=== PATIENT | female | born 1980 | race American Indian/Alaskan Native ===

== ENCOUNTER 2017-06-07 13:45 | Outpatient (CLI) | payer MEDICAID ==
[2017-06-07 14:16] VITALS: BP 124/74
== END 2017-06-07 15:50 | disposition home or self-care (01) ==
LOC: TRG 13:45
PROVIDERS: ATTEND Obstetrics & Gynecology
DX: O09.523 Supervision of elderly multigravida, third trimester (principal); O48.0 Post-term pregnancy; Z3A.40 40 weeks gestation of pregnancy
CPT/HCPCS: 59025

== ENCOUNTER 2017-06-12 09:25 | Inpatient (IN) | payer MEDICAID ==
[2017-06-12 11:39] LABS: Hematocrit 33.1 % (30.3-42.9); Hemoglobin 11.3 gm/dl (10.1-14.3); Mean Corpuscular HGB Conc 34 % (30-34); Mean Corpuscular Hemoglobin 33 pg (28-32); Mean Corpuscular Volume 98 fl (79-97); Platelet Count 161 K/mm3 (140-440); Red Blood Count 3.38 M/mm3 (3.65-5.03); White Blood Count 11.3 K/mm3 (4.5-11.0)
[2017-06-12] MEDS ORDERED: SUBLIMAZE IV PRN (12:38)
[2017-06-12] MEDS ORDERED: STADOL IV PRN (12:39)
[2017-06-12] MEDS ORDERED: PITOCin/NS 20 UNIT/1000ML DRIP 20 UNITS/1,000 ML BAG IV SCH ×2 (13:00→20:00)
[2017-06-12] MEDS: PITOCin/NS 30 UNIT/500ML 30 UNITS/500 ML BAG IV SCH (13:01)
[2017-06-12] MEDS: LACTATED RINGERS 1,000 ML IV SCH (13:05)
[2017-06-12] MEDS ORDERED: ePHEDrine SULFATE IV PRN (19:01)
[2017-06-12] MEDS ORDERED: MINERAL OIL PO PRN (19:01)
[2017-06-12] MEDS ORDERED: XYLOCAINE 2% INFILTRATI ONE (19:01)
[2017-06-12] MEDS ORDERED: BRETHINE IVP PRN (19:01)
[2017-06-12] MEDS ORDERED: BRETHINE SUB-Q PRN (19:01)
--- NOTE | 2017-06-12 19:01 | History and Physical Report ---
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 Social history: single - Obstetrical History Expected Date of Delivery: 06/06/17 Actual Gestation: 41 Week(s) 0 Day(s) : 1 Number of Living Children: 0 Medications and Allergies Allergies Allergy/AdvReac Type Severity Reaction Status Date / Time No Known Allergies Allergy Unverified 04/15/15 16:04 Home Medications Medication Instructions Recorded Confirmed Last Taken Type Pnv with Ca,No.72/Iron/FA [Pnv 1 mg PO QDAY 06/12/17 06/12/17 06/11/17 History Plus Multivit Tab] Active Meds: Active Medications Butorphanol Tartrate (Stadol) 2 mg IV Q2H PRN PRN Reason: Labor Pain Fentanyl (Sublimaze) 100 mcg IV ONCE PRN PRN Reason: Pain , Severe (7-10) Lactated Ringer's (Lactated Ringers) 1,000 mls @ 125 mls/hr IV DIRECT MARY Last Admin: 06/12/17 13:05 Dose: 125 mls/hr Oxytocin/Sodium Chloride (Pitocin/Ns 20 Unit/1000ml Drip) 20 units in 1,000 mls @ 0 mls/hr IV DIRECT MARY PRN Reason: As Directed Oxytocin/Sodium Chloride (Pitocin/Ns 30 Unit/500ml) 30 units in 500 mls @ 2 mls /hr IV TITR MARY PRN Reason: Protocol Last Titration: 06/12/17 17:30 Dose: 0 ml/hr, 0 mls/hr Review of Systems Gastrointestinal: abdominal pain Genitourinary: contractions - Vital Signs Vital signs: Vital Signs Temp Pulse Resp BP Pulse Ox 97.9 F 71 14 119/72 97 06/12/17 10:05 06/12/17 10:05 06/12/17 10:05 06/12/17 10:05 06/12/17 10:05 Temp Pulse Resp BP Pulse Ox 98.0 F 64 16 119/74 100 06/12/17 17:09 06/12/17 17:09 06/12/17 17:09 06/12/17 17:09 06/12/17 13:05 - Physical Exam Breasts: Cardiovascular: Regular rate, Normal S1, Normal S2 Lungs: Positive: Clear to auscultation, Normal air movement Abdomen: Positive: normal appearance, soft, normal bowel sounds. Negative: distention, tenderness Genitourinary (Female): Positive: normal external genitalia, normal perenium Vulva: both: normal Vagina: Positive: normal moisture. Negative: discharge Cervix: Negative: lesion, discharge Uterus: Positive: normal size, normal contour Adnexa: both: normal Anus/Rectum: Positive: normal perianal skin, heme negative. Negative: rectal mass, hemorrhoids Extremities: Positive: normal Deep Tendon Reflex Grade: Normal +2 - Obstetrical Cervical Dilatation: 1.5 Cervical Effacement Percentage: 50 station: -3 Uterine Contraction Pattern: Irregular Uterine Contraction Intensity: Moderate Results Result Diagrams: 06/12/17 10:45 Abnormal lab results 06/12/17 Range/Units 10:45 WBC 11.3 H (4.5-11.0) K/mm3 RBC 3.38 L (3.65-5.03) M/mm3 MCV 98 H (79-97) fl MCH 33 H (28-32) pg All other labs normal. Assessment and Plan IUP at 40.4 weeks here for induction of labor for advanced maternal age. WIll admit and begin pitocin induction. GBS negative. Will arom when able. Anticipate .
[2017-06-12] MEDS ORDERED: AMBIEN PO PRN (19:04)
[2017-06-12] MEDS ORDERED: LACTATED RINGERS 1,000 ML IV SCH (20:00)
[2017-06-12] MEDS ORDERED: PITOCin/NS 30 UNIT/500ML 30 UNITS/500 ML BAG IV SCH (20:00)
[2017-06-13] MEDS: PITOCin/NS 30 UNIT/500ML 30 UNITS/500 ML BAG IV SCH ×3 (09:41→11:11)
[2017-06-13] MEDS ORDERED: ePHEDrine SULFATE IV PRN (12:35)
[2017-06-13] MEDS ORDERED: NARCAN 2 MG/2 ML IV PRN (12:35)
--- NOTE | 2017-06-13 12:35 | Anesthesia Consultation ---
Anesthesia Consult and Med Hx Date of service: 06/13/17 - Airway Anesthetic Teeth Evaluation: Good ROM Head & Neck: Adequate Mental/Hyoid Distance: Adequate Mallampati Class: Class II Intubation Access Assessment: Probably Good - Pulmonary Exam CTA: Yes - Cardiac Exam Cardiac Exam: RRR - Pre-Operative Health Status ASA Pre-Surgery Classification: ASA2 Proposed Anesthetic Plan: Epidural - Pulmonary Hx Asthma: No - Cardiovascular System Hx Hypertension: No - Central Nervous System Hx Seizures: No Hx Psychiatric Problems: No - Endocrine Hx Renal Disease: No Hx Hypothyroidism: No Hx Hyperthyroidism: No - Hematic Hx Anemia: No Hx Sickle Cell Disease: No - Other Systems Hx Alcohol Use: No
[2017-06-13] MEDS: LACTATED RINGERS 1,000 ML IV SCH (12:57)
[2017-06-13] MEDS ORDERED: fentaNYL-BUPIV 2 MCG/ML-0.125% 200 MCG/100 ML BAG EPIDURAL SCH (13:00)
--- NOTE | 2017-06-13 17:03 | Event Note ---
Date: 06/13/17 Patient progressed to 4 cm with srom. Exam reveals 5-6/100 in possible op position. Will attempt to change position of head by rotating patient. Continue current management. Anticipate .
[2017-06-13] MEDS ORDERED: TYLENOL PO PRN (18:26)
[2017-06-13] MEDS ORDERED: POLYCILLIN/NS 2 GM/100 ML 2 GM/100 ML BAG IV ONE (18:28)
[2017-06-13] MEDS ORDERED: ZOFRAN IV PRN ×2 (18:28→20:53)
[2017-06-13] MEDS ORDERED: ANCEF/STERILE WATER 2 GM/20 ML 2 GM/20 ML SYRINGE IV ONE (19:20)
[2017-06-13] MEDS ORDERED: PEPCID IV ONE ×2 (19:20→20:00)
[2017-06-13] MEDS ORDERED: BICITRA ONE (19:20)
[2017-06-13] MEDS ORDERED: REGLAN ONE (19:20)
[2017-06-13] MEDS ORDERED: REGLAN IV ONE (19:26)
--- NOTE | 2017-06-13 19:26 | Event Note ---
Date: 06/13/17 In to check patient, who is still at 9cm. Tried to push with patient to reduce cervix which caused heart deceleration to 80s for 3 minutes with slow return. In addition patient is now febrile with tachycardia. Discussed intolerance to labor and likely need for . Will now proceed with .
[2017-06-13] MEDS ORDERED: WATER FOR IRRIG STERILE IR ONE (19:55)
[2017-06-13] MEDS ORDERED: NACL 0.9% IR ONE (19:55)
[2017-06-13] MEDS ORDERED: MORPHINE ONE ×3 (19:56→20:30)
[2017-06-13] MEDS ORDERED: XYLOCAINE MPF 2% ONE ×2 (19:56→20:07)
[2017-06-13] MEDS ORDERED: ANCEF/STERILE WATER 2 GM/20 ML 2 GM/20 ML SYRINGE IV NR (20:00)
[2017-06-13] MEDS ORDERED: LACTATED RINGERS 1,000 ML IV SCH (20:00)
[2017-06-13] MEDS ORDERED: PITOCin/NS 20 UNIT/1000ML DRIP 20 UNITS/1,000 ML BAG IV SCH ×2 (20:00→22:59)
[2017-06-13] MEDS ORDERED: QUELICIN ONE (20:08)
[2017-06-13] MEDS ORDERED: DIPRIVAN 10 MG/ML IV ONE (20:08)
[2017-06-13] MEDS ORDERED: VERSED ONE (20:34)
[2017-06-13] MEDS ORDERED: TORADOL ONE (20:48)
[2017-06-13] MEDS ORDERED: NARCAN 0.4 MG/1 ML IV PRN (20:53)
[2017-06-13] MEDS ORDERED: PHENERGAN PR PRN (20:53)
[2017-06-13] MEDS ORDERED: ZOFRAN ONE (20:53)
[2017-06-13] MEDS ORDERED: BENADRYL IV PRN (20:53)
[2017-06-13] MEDS ORDERED: DILAUDID PCA 6MG/30ML IV SCH (21:00)
[2017-06-13] MEDS ORDERED: NACL 0.9% 1000 ML 1,000 ML IV SCH (21:00)
--- NOTE | 2017-06-13 21:07 | Operative Report ---
Operative Report Operative Report: The operative report for patient Shama Mak Date of service 06/13/2017 Preoperative diagnosis: Intrauterine at 40-6/7 weeks 2. intolerance to labor 3. Maternal fever 4. Arrest of descent Postoperative diagnosis: Same with persistent occiput posterior position Procedure: Primary low transverse section Surgeon: Dr. Jacqueline Matthews EBL: 600 Urine output: 50 IV fluids: 1200 mL Findings: Viable female in the vertex occiput posterior position. Weight 7 lbs. 5 oz. 3320 g Apgars 8 and 8. Otherwise normal pelvic anatomy Specimens: None Complications: None Procedure: The patient was admitted to the OR with IV running and in place. She was properly identified as herself. Her spinal had been placed in the room and she was already under the effects of anesthesia upon entry into the OR. She was placed in the dorsal supine position with a leftward tilt. A Bonilla catheter was already in place. She was then prepped and draped in the normal sterile fashion. An Allis test was used to confirm adequate anesthesia, however anesthesia was not adequate. Therefore she was placed under general anesthesia Once the patient was asleep the incision was made with the scalpel and carried to the underlying fascia using the scalpel and the Bovie. The fascia was incised in the midline and incision was extended bilaterally using the curved Acevedo scissors. The fascia was then dissected from the underlying rectus muscles in a series of sharp and blunt dissection using the Acevedo scissors. Muscles were in the in the midline sharply using Metzenbaum scissors and the peritoneum was entered into bluntly using the surgeon's fingers. A bladder blade was then placed into the incision to protect the bladder. Following this the bladder flap was created. Hysterotomy incision was then made in the scalpel. Once near the empty amniotic sac was ruptured for clear fluid. The was then delivered in the occiput posterior position. Her mouth and nose were suctioned on the field. The cord was clamped and cut and he was handed to the waiting NICU personnel. The uterus was then exteriorized and cleared of all clots and debris. The hysterotomy incision was then closed in a running locked fashion using 0 Vicryl. The abdomen was then copiously irrigated with warm normal saline. Following this the uterus was replaced into the abdominal cavity. At this point the muscles were reapproximated in the midline using individual sutures of 0 Vicryl. Following this the fascia was closed in a running fashion using 0 Vicryl. Tissue was then copiously irrigated. Skin was closed in a running fashion using 3-0 Monocryl. The sponge lap needle and attention counts were correct 2. The patient tolerated the procedure well. She was taken to recovery in stable condition.
[2017-06-13] MEDS ORDERED: SENOKOT S PO SCH (22:00)
[2017-06-13] MEDS ORDERED: MYLICON PO PRN (22:59)
[2017-06-13] MEDS ORDERED: LANSINOH TP PRN (22:59)
[2017-06-13] MEDS ORDERED: TUCKS PAD TP PRN (22:59)
[2017-06-13] MEDS ORDERED: TYLENOL PR PRN (22:59)
[2017-06-13] MEDS ORDERED: SODIUM CHLORIDE FLUSH SYRINGE 10 ML IV NR (22:59)
[2017-06-13] MEDS ORDERED: D5LR 1,000 ML IV SCH (22:59)
[2017-06-14] MEDS ORDERED: ANCEF/NS 1 GM/50 ML 1 GM/50 ML BAG IV SCH ×2 (04:00→15:00)
[2017-06-14 08:54] LABS: Hematocrit 26.9 % (30.3-42.9); Hemoglobin 9.1 gm/dl (10.1-14.3)
[2017-06-14] MEDS: FEOSOL PO SCH (09:57)
[2017-06-14] MEDS: MILK OF MAGNESIA PO PRN (14:10)
--- NOTE | 2017-06-14 17:42 | Progress Note ---
Assessment and Plan POD 1 s/p ltcs. Doing well. Patient tolerating po and passing flatus. Continue routine care. Subjective - Subjective Date of service: 06/14/17 Patient reports: appetite normal, voiding normally, pain well controlled, ambulating normally [place]: doing well Objective - Vital Signs Latest vital signs: Vital Signs Temp Pulse Resp BP Pulse Ox 06/14/17 12:50 98.5 F 97 H 20 121/61 06/14/17 08:25 99 F 84 20 125/61 06/14/17 07:05 18 06/14/17 06:20 16 06/14/17 03:30 98.6 F 81 20 128/70 06/14/17 02:15 18 06/14/17 00:40 16 06/13/17 23:15 98.8 F 87 20 124/61 06/13/17 22:40 17 06/13/17 22:25 98.3 F 06/13/17 22:15 91 H 13 127/68 100 06/13/17 22:10 91 H 16 128/77 100 06/13/17 22:05 92 H 17 124/79 100 06/13/17 22:00 91 H 16 124/81 100 06/13/17 21:55 92 H 18 129/77 100 06/13/17 21:50 91 H 18 125/77 100 06/13/17 21:45 92 H 16 127/78 100 06/13/17 21:40 93 H 17 130/79 100 06/13/17 21:35 95 H 16 133/66 100 06/13/17 21:30 99 H 20 121/79 100 06/13/17 21:25 104 H 20 119/89 100 06/13/17 21:20 94 H 19 122/76 100 06/13/17 21:15 98 H 17 126/74 100 06/13/17 21:10 101 H 18 122/71 100 06/13/17 21:05 107 H 18 112/81 100 06/13/17 21:02 109 H 21 100 06/13/17 21:00 98.0 F 06/13/17 19:31 96 H 100 06/13/17 19:29 103 H 147/69 06/13/17 19:26 99 H 100 06/13/17 19:21 94 H 100 06/13/17 19:20 97 H 93 06/13/17 19:16 93 H 100 06/13/17 19:12 99 H 133/73 06/13/17 19:11 112 H 100 06/13/17 19:06 95 H 100 06/13/17 19:01 98 H 100 06/13/17 18:57 95 H 117/68 06/13/17 18:56 93 H 100 06/13/17 18:51 98 H 100 06/13/17 18:46 95 H 100 06/13/17 18:43 97 H 111/66 06/13/17 18:41 99 H 100 06/13/17 18:36 96 H 100 06/13/17 18:31 101 H 100 06/13/17 18:29 99 H 117/66 06/13/17 18:26 99 H 100 06/13/17 18:21 103 H 100 06/13/17 18:16 112 H 100 06/13/17 18:15 92 H 146/70 06/13/17 18:11 98 H 100 06/13/17 18:10 100.4 F H 95 H 20 117/66 06/13/17 18:06 100 H 100 06/13/17 18:01 98 H 100 06/13/17 17:58 100 H 135/77 06/13/17 17:56 99 H 100 06/13/17 17:51 98 H 100 06/13/17 17:46 100 H 100 06/13/17 17:43 102 H 133/79 06/13/17 17:41 95 H 99 Intake and Output 06/14/17 06/14/17 06/14/17 06:59 14:59 22:59 Intake Total 240 600 Output Total 500 950 Balance -260 -350 Intake: Oral 240 600 Output: Urine 500 950 Indwelling Catheter 500 Void 950 Other: Total, Intake Amount 120 360 Total, Output Amount 500 600 # Voids Void 2 - Exam Breasts: Present: deferred Cardiovascular: Present: Regular rate, Normal S1, Normal S2 Lungs: Present: Clear to auscultation, Normal air movement Abdomen: Present: normal appearance, soft Uterus: Present: normal, firm Extremities: Present: normal Deep Tendon Reflex Grade: Normal +2 Incision: Present: normal, dry, intact, dressed - Labs Labs: Abnormal lab results 06/14/17 Range/Units 08:34 Hgb 9.1 L (10.1-14.3) gm/dl Hct 26.9 L D (30.3-42.9) %
--- NOTE | 2017-06-14 18:18 | Progress Note ---
Subjective Date of service: 06/14/17 Interval history: No anesthetic related complaints. Objective - Constitutional Vitals: Vital Signs - 12hr 06/14/17 06/14/17 06/14/17 06:20 07:05 08:25 Temperature 99 F Pulse Rate 84 Respiratory 16 18 20 Rate Blood Pressure 125/61 06/14/17 06/14/17 12:50 16:35 Temperature 98.5 F 99.2 F Pulse Rate 97 H 93 H Respiratory 20 20 Rate Blood Pressure 121/61 141/72 - Labs CBC & Chem 7: 06/14/17 08:34 Labs: Abnormal lab results 06/14/17 Range/Units 08:34 Hgb 9.1 L (10.1-14.3) gm/dl Hct 26.9 L D (30.3-42.9) %
[2017-06-14] MEDS: PERCOCET 5/325 PO PRN (19:27)
[2017-06-15] MEDS: MOTRIN PO PRN ×3 (04:32→20:39)
[2017-06-15] MEDS: PERCOCET 5/325 PO PRN (04:33)
[2017-06-15] MEDS: FEOSOL PO SCH (10:06)
--- NOTE | 2017-06-15 15:08 | Progress Note ---
Assessment and Plan POD 2 s/p ltcs. Doing well. Patient will be 48 hours post this pm. Plan for discharge on tomorrow. Subjective - Subjective Date of service: 06/15/17 Patient reports: appetite normal, voiding normally, pain well controlled, flatus , ambulating normally : doing well Objective - Vital Signs Latest vital signs: Vital Signs Temp Pulse Resp BP 06/15/17 08:15 98.7 F 69 20 124/72 06/15/17 00:40 98.4 F 84 20 126/74 06/14/17 16:35 99.2 F 93 H 20 141/72 Intake and Output 06/15/17 06/15/17 06/15/17 06:59 14:59 22:59 Intake Total 480 360 Balance 480 360 Intake: Oral 480 360 Other: Total, Intake Amount 240 120 # Voids Void 1 1 - Exam Breasts: Present: deferred Cardiovascular: Present: Regular rate, Normal S1, Normal S2 Lungs: Present: Clear to auscultation, Normal air movement Abdomen: Present: normal appearance, soft, normal bowel sounds Uterus: Present: normal, firm Extremities: Present: normal Deep Tendon Reflex Grade: Normal +2 Incision: Present: normal, dry, intact
--- NOTE | 2017-06-15 15:09 | Discharge Summary ---
Providers - Providers Date of Admission: 06/12/17 09:25 Date of discharge: 06/16/17 Attending physician: EKATERINA BROWNE Primary care physician: EKATERINA BROWNE Hospitalization Reason for admission: induction of labor Delivery: Procedure: primary low transverse Incision: normal, dry, intact complications: none Discharge diagnosis: IUP at term delivered [place] baby: female Hospital course: unremarkable Condition at discharge: Good Disposition: DC-01 TO HOME OR SELFCARE Plan - Discharge Medications Prescriptions: Ibuprofen [Motrin 800 MG tab] 800 mg PO Q6HR PRN #50 tablet PRN Reason: Pain Oxycodone HCl/Acetaminophen [Percocet 7.5/325 mg] 1 each PO Q6HR PRN #50 tablet PRN Reason: Pain - Provider Discharge Summary Activity: routine, no sex for 6 weeks, no heavy lifting 4 weeks, no strenuous exercise Diet: routine Instructions: routine Additional instructions: [] Smoking cessation referral if applicable(refer to patient education folder for contact #) [] Refer to [facility]'s [facility] Booklet Call your doctor immediately for: * Fever > 100.5 * Heavy vaginal bleeding ( >1 pad per hour) * Severe persistent headache * Shortness of breath * Reddened, hot, painful area to leg or breast * Drainage or odor from incision. * Keep incision clean and dry at all times and follow doctor's instructions regarding bathing/showering - Follow up plan Follow up: EKATERINA BROWNE MD [Primary Care Provider] - 14 Days
[2017-06-15] MEDS: MILK OF MAGNESIA PO PRN (20:37)
[2017-06-16] MEDS: MOTRIN PO PRN (06:26)
[2017-06-16 08:43] VITALS: BP 120/80
[2017-06-16] MEDS: FEOSOL PO SCH (11:54)
[2017-06-16] MEDS: PERCOCET 5/325 PO PRN (11:55)
== END 2017-06-16 15:10 | disposition home or self-care (01) | DRG 765 ==
LOC: LD 09:25 → OB 06-14 00:34
PROVIDERS: ADMIT Obstetrics & Gynecology; ATTEND Obstetrics & Gynecology
PROC: 10D00Z1 Extraction of Products of Conception, Low, Open Approach (ICD-10-PCS; principal; 2017-06-13)
DX: O76 Abnormality in fetal heart rate and rhythm complicating labor and delivery (principal); O75.2 Pyrexia during labor, not elsewhere classified; O62.2 Other uterine inertia; Z3A.40 40 weeks gestation of pregnancy; Z37.0 Single live birth; O09.513 Supervision of elderly primigravida, third trimester
CPT/HCPCS: 36415; 85014; 85018; 85027; 86850; 86900; 86901; J0290; J0330; J0690; J1170; J1885; J2250; J2270; J2405; J2590; J2704; J2765; J3010; J7120; J7121